=== PATIENT | female | born 1935 | race Caucasian/White ===

== ENCOUNTER 2021-04-16 14:19 | Emergency (ER) | payer MEDICARE, BC ==
[~2021-04-16] VITALS: Ht 154.9 cm; Wt 55.0 kg
[2021-04-16] MEDS ORDERED: TRIA1CAP3 PO (14:34)
[2021-04-16] MEDS ORDERED: CITA20TA6 PO (14:34)
[2021-04-16] MEDS ORDERED: LEVO88TA4 PO (14:35)
[2021-04-16] MEDS ORDERED: LISI-170 PO (14:35)
[2021-04-16] MEDS ORDERED: PROP20TA PO (14:36)
--- NOTE | 2021-04-16 14:48 | NUR ---
THIS IS A 86 YEAR OLD FEMALE WHO WAS BIB AMBULANCE DUE TO A SYNCOPAL EPISODE. PT LIVES AT AN [facility] GOING OUT SHOPPING AND FELL BACK. C/O OF MID BACK PAIN. 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 PT UP TO BATHROOM, OBTAINED UA, BACK TO BED, WARM BLANKET ON. TO X RAY VIA RZAPATA
[2021-04-16] MEDS ORDERED: SODIUM CHLORIDE FLUSH 10ML SYR IVF ONE (15:00)
[2021-04-16 15:04] LABS: MICROSCOPIC AUTO
[2021-04-16 15:27] LABS: BASOPHILS % (AUTO) 1 % (0-1); EOSINOPHILS % (AUTO) 2 % (1-7); LYMPHOCYTES % (AUTO) 24 % (22-44); MEAN CORPUSCULAR HEMOGLOBIN 32.9 pg (27.0-34.8); MEAN CORPUSCULAR HGB CONC 34.2 g/dL (32.4-35.8); MEAN PLATELET VOLUME 7.4 fL (7.4-10.4); MONOCYTES % (AUTO) 9 % (2-9); NEUTROPHILS % (AUTO) 64 % (42-75); PLATELET COUNT 365 x10^3/uL (130-400); RED BLOOD COUNT 3.81 x10^6/uL (3.82-5.3); RED CELL DISTRIBUTION WIDTH 13.7 % (9.6-15.2)
[2021-04-16 15:28] LABS: MD NO
[2021-04-16 15:40] LABS: ALBUMIN 4.2 g/dL (3.4-5.0); ANION GAP 7 mmol/L (5-15); CALCIUM 9.5 mg/dL (8.5-10.1); CHLORIDE 96 mmol/L (98-107); CREATININE 0.73 mg/dL (0.55-1.02)
[2021-04-16 15:44] LABS: TROPONIN I < 0.015 ng/mL (0.000-0.045)
--- NOTE | 2021-04-16 15:47 | NUR ---
PT RESTING, VERBALIZED NO NEEDS AT THIS TIME
--- NOTE | 2021-04-16 16:15 | NUR ---
NO BLOODCULTURES PER DR. BRAVO PRIOR TO ANTIBX
--- NOTE | 2021-04-16 16:22 | NUR ---
SON AND GRAND DAUGHTER AT BS, PT TO CT SCAN VIA [facility]
[2021-04-16] MEDS ORDERED: CEFTRIAXONE 1,000 MG in DEXTROSE 5% 50 ML IVPB ONE (16:30)
[2021-04-16 16:33] VITALS: BP 172/61
--- NOTE | 2021-04-16 17:31 | NUR ---
Patient/Caregiver given discharge instructions and they have confirmed that they understand the instructions. Patient ambulatory with steady gait.
== END 2021-04-16 17:42 | disposition home or self-care (01) ==
LOC: ED 17:39
DX: S22.069A Unspecified fracture of T7-T8 vertebra, initial encounter for closed fracture (principal); S22.079A Unspecified fracture of T9-T10 vertebra, initial encounter for closed fracture; N30.00 Acute cystitis without hematuria; R55 Syncope and collapse; X58.XXXA Exposure to other specified factors, initial encounter; Y93.89 Activity, other specified; Y92.89 Other specified places as the place of occurrence of the external cause; Y99.8 Other external cause status
CPT/HCPCS: 36415; 70450; 71045; 72072; 80048; 81001; 82040; 84484; 85025; 87086; 96365; 99285; J0696

== ENCOUNTER 2021-08-13 13:50 | Emergency (ER) | payer MEDICARE, BC ==
[~2021-08-13] VITALS: Ht 157.5 cm; Wt 56.0 kg
[~2021-08-13 13:50] MED LIST: CITA20TA6 PO; LEVO88TA4 PO; LISI-170 PO; PROP20TA PO; TRIA1CAP3 PO
--- NOTE | 2021-08-13 13:55 | NUR ---
PT BROUHT IN BY GRISELDA FROM [facility] AFTER GLF. PT DENIES PAIN OR LOC. UNSURE OF BASELINE, PT ALERT AND ORIENTED.
--- NOTE | 2021-08-13 14:17 | NUR ---
per family- hx dementia
--- NOTE | 2021-08-13 14:35 | NUR ---
ALEXA GRIMES AT [facility] SAR[facility] BETH QUISPEAL
--- NOTE | 2021-08-13 14:53 | NUR ---
task rn note: pt taken to CT
[2021-08-13 14:55] LABS: BASOPHILS % (AUTO) 1 % (0-1); EOSINOPHILS % (AUTO) 4 % (1-7); LYMPHOCYTES % (AUTO) 18 % (22-44); MEAN CORPUSCULAR HEMOGLOBIN 33.1 pg (27.0-34.8); MEAN CORPUSCULAR HGB CONC 34.7 g/dL (32.4-35.8); MEAN PLATELET VOLUME 7.7 fL (7.4-10.4); MONOCYTES % (AUTO) 10 % (2-9); NEUTROPHILS % (AUTO) 68 % (42-75); PLATELET COUNT 370 x10^3/uL (130-400); RED BLOOD COUNT 3.84 x10^6/uL (3.82-5.3); RED CELL DISTRIBUTION WIDTH 13.8 % (9.6-15.2)
[2021-08-13 15:00] LABS: ALANINE AMINOTRANSFERASE 29 U/L (12-78); ALBUMIN 3.7 g/dL (3.4-5.0); ANION GAP 9 mmol/L (5-15); CALCIUM 8.4 mg/dL (8.5-10.1); CHLORIDE 98 mmol/L (98-107); CREATININE 0.76 mg/dL (0.55-1.02)
[2021-08-13 15:05] LABS: ALKALINE PHOSPHATASE 78 U/L (45-117); BILIRUBIN,TOTAL 0.4 mg/dL (0.2-1.0); TOTAL PROTEIN 6.8 g/dL (6.4-8.2); TROPONIN I < 0.015 ng/mL (0.000-0.045)
[2021-08-13 15:31] LABS: INTERNATIONAL NORMALIZED RATIO 1.08 (0.93-1.1); PROTHROMBIN TIME 11.5 Seconds (9.6-11.5)
[2021-08-13 15:34] VITALS: BP 169/62
--- NOTE | 2021-08-13 15:51 | NUR ---
ALEXA at [facility] to discuss poc. Family on way to dc patient.
--- NOTE | 2021-08-13 16:22 | NUR ---
Discharge instructions reviewed
== END 2021-08-13 16:24 | disposition home or self-care (01) ==
LOC: ED 14:16
DX: S06.310A Contusion and laceration of right cerebrum without loss of consciousness, initial encounter (principal); I10 Essential (primary) hypertension; W01.0XXA Fall on same level from slipping, tripping and stumbling without subsequent striking against object, initial encounter; Y93.89 Activity, other specified; Y92.89 Other specified places as the place of occurrence of the external cause; Y99.8 Other external cause status
CPT/HCPCS: 36415; 70450; 80053; 84484; 85025; 85610; 93005; 99285

== ENCOUNTER 2021-08-17 09:45 | Emergency (ER) | payer MEDICARE, BC ==
[~2021-08-17] VITALS: Ht 157.5 cm; Wt 55.2 kg
--- NOTE | 2021-08-17 10:09 | NUR ---
upsetter note: Pt to room from lobby.
--- NOTE | 2021-08-17 10:15 | NUR ---
86 Y/O F, C/O DIZZINESS WHEN SHE WOEK UPP THIS AM. DENIES FALLS, OR OTHER INJURIES. PT AxOx3. UNABLE TO NAME LOCATION BUT AWARE OF BEN. PTS GRANDDAUGHTER AT BEDSIDE. PT ASSISTED WITH CHANGIONG AND PLACED ON MONITOR AND CONT PULSE OX
[2021-08-17] MEDS ORDERED: MECLIZINE CHEWABLE 25 MG TAB PO ONE (10:30)
--- NOTE | 2021-08-17 10:35 | NUR ---
PT TO RAD
[2021-08-17] MEDS ORDERED: MECLIZINE CHEWABLE 25 MG TAB ONE (10:42)
--- NOTE | 2021-08-17 10:51 | NUR ---
PT RETURNED FROM RAD
[2021-08-17 11:27] LABS: BASOPHILS % (AUTO) 1 % (0-1); EOSINOPHILS % (AUTO) 3 % (1-7); LYMPHOCYTES % (AUTO) 21 % (22-44); MEAN CORPUSCULAR HEMOGLOBIN 33.1 pg (27.0-34.8); MEAN CORPUSCULAR HGB CONC 34.5 g/dL (32.4-35.8); MEAN PLATELET VOLUME 7.5 fL (7.4-10.4); MONOCYTES % (AUTO) 10 % (2-9); NEUTROPHILS % (AUTO) 65 % (42-75); PLATELET COUNT 426 x10^3/uL (130-400); RED BLOOD COUNT 3.73 x10^6/uL (3.82-5.3); RED CELL DISTRIBUTION WIDTH 14.1 % (9.6-15.2)
[2021-08-17 11:36] LABS: ALBUMIN 3.6 g/dL (3.4-5.0); ANION GAP 7 mmol/L (5-15); CALCIUM 8.8 mg/dL (8.5-10.1); CHLORIDE 102 mmol/L (98-107); CREATININE 0.65 mg/dL (0.55-1.02)
[2021-08-17 11:38] LABS: TROPONIN I < 0.015 ng/mL (0.000-0.045)
--- NOTE | 2021-08-17 11:59 | NUR ---
PTS DAUGHTER AT BEDSIDE
[2021-08-17 12:42] LABS: MICROSCOPIC NOT IND
--- NOTE | 2021-08-17 14:08 | NUR ---
PT AMBULATED WITH ASSIST TO BR. PT VOIDED
[2021-08-17 14:09] VITALS: BP 166/83
== END 2021-08-17 15:01 | disposition home or self-care (01) ==
LOC: ED 10:15
DX: R42 Dizziness and giddiness (principal); R11.2 Nausea with vomiting, unspecified; R51.9 Headache, unspecified; I10 Essential (primary) hypertension; Z86.39 Personal history of other endocrine, nutritional and metabolic disease
CPT/HCPCS: 36415; 70450; 80048; 81003; 82040; 84484; 85025; 93005; 99285